=== PATIENT | female | born 1990 | race Caucasian/White ===

== ENCOUNTER 2017-12-19 12:59 | Inpatient (IN) | payer OTHER ==
[2017-12-19] MEDS ORDERED: Sodium Chloride 0.9% 10 ML Syringe FLUSH PRN (14:26)
[2017-12-19] MEDS ORDERED: Lactated Ringers 1,000 ML IV SCH (14:30)
[2017-12-19] MEDS ORDERED: Oxytocin/Lactated Ringers 10 UNIT/1,000 ML BAG IV SCH (17:30)
[2017-12-19] MEDS ORDERED: Calcium Carbonate 500 MG Tab.Chew PO PRN (22:31)
[2017-12-20] MEDS ORDERED: Nalbuphine 20 MG/1 ML Amp IVPUSH ONE (02:07)
--- NOTE | 2017-12-20 07:26 | PCM.LDHP ---
L&D History of Present Illness - General Date of Service: 12/20/17 Admit Problem/Dx: Patient Status Order with Admit Dx/Problem 12/19/17 14:32 Patient Status [ADT] Urgent Admission Diagnosis/Problem Admission Diagnosis/Problem Source of Information: Patient History Limitations: Reports: No Limitations - History of Present Illness Introduction:: 27-year-old 000 PERCY 12/31/17 resented to labor and delivery on 12/19/17 with history of ruptured membranes estimated gestational age 38 weeks and 2 days at that time. Patient was started on Pitocin after adequate level of time given to start spontaneous labor. Spontaneous rupture membranes with confirmed and the Essure patient thinks membranes ruptured probably 0900 hrs. on 12/19/17. GBS negative. AB+, antibody screen negative, hemoglobin hematocrit on 06/16/1809.9 and 32.8 with platelets 253,000. Pap test negative on 06/16/17 rubella immune, VDRL nonreactive urine culture negative hepatitis B surface antigen negative HIV negative Chlamydia and gonorrhea negative 10/12/17 hemoglobin hematocrit 10.1/30.7. Platelets 235,000 diabetes screen 114 11/23/17 hemoglobin 10.9/hematocrit 33.1 platelets 208,000 Group B strep negative on 12/07/17. Pain Score: 8 Improves with: Reports: None Worsens with: Reports: None Associated Symptoms: Reports: N - Related Data Allergies/Adverse Reactions: Allergies Allergy/AdvReac Type Severity Reaction Status Date / Time amoxicillin [From Augmentin] Allergy Hives Verified 12/19/17 16:52 clavulanic acid Allergy Hives Verified 12/19/17 16:52 [From Augmentin] Dairy Products Allergy Stomach Verified 12/19/17 16:52 Upset latex Allergy Anaphylactic Verified 12/19/17 16:52 Shock Home Medications: Home Meds Acyclovir 400 mg PO BID 12/19/17 [History] Ferrous Sulfate [Iron] 325 mg PO DAILY 12/19/17 [History] Vit #108/Iron/FA [ One Tablet] 1 each PO DAILY 12/19/17 [ History] Past Medical History STRIPPER BLACK AND WHITE History: Reports: Endometriosis, Other (See Below) Other OB/BYN History: Had laproscopic dx of endometriosis Psychiatric History: Reports: Depression, PTSD Other Psychiatric History: EPDS in clinic 14/30-declined medication Hematologic History: Reports: Anemia - Infectious Disease History Infectious Disease History: Reports: Herpes Other Infectious Disease History: Started Acyclovir 400mg BID prophylaxis Social & Family History - Family History Family Medical History: Noncontributory - Tobacco Use Smoking Status *Q: Never Smoker Second Hand Smoke Exposure: No - Caffeine Use Caffeine Use: Reports: None - Recreational Drug Use Recreational Drug Use: No H&P Review of Systems - Review of Systems: Review Of Systems: See Below General: Reports: No Symptoms HEENT: Reports: No Symptoms Pulmonary: Reports: No Symptoms Cardiovascular: Reports: No Symptoms Gastrointestinal: Reports: No Symptoms Genitourinary: Reports: No Symptoms Musculoskeletal: Reports: No Symptoms Skin: Reports: No Symptoms Psychiatric: Reports: No Symptoms Neurological: Reports: No Symptoms Hematologic/Lymphatic: Reports: No Symptoms Immunologic: Reports: No Symptoms L&D Exam - Exam Exam: See Below - Vital Signs Vital Signs: Last Vital Signs Temp 98.2 F 12/19/17 13:21 Pulse 87 12/19/17 13:21 Resp 18 12/19/17 13:21 BP 104/91 H 12/19/17 13:21 Pulse Ox Weight: 146 lb - OB Specific Movement: Active Heart Tones: Present Heart Tones per Min: 135 Heart Rate (FHR) Variability: Moderate (6-25 bmp) Presentation: Vertex - Nguyen Score Nguyen Score Cervix Position: Posterior Nguyen Score Consistency: Soft Nguyen Score Effacement: >80% Nguyen Score Dilation: 1-2 cm Nguyen Score 's Station: +1, +2 Nguyen Score Total: 9 - Exam General: Alert, Oriented HEENT: Conjunctiva Clear, EACs Clear, Mucosa Moist & [place], PERRLA Neck: Supple, Trachea Midline Lungs: Clear to Auscultation, Normal Respiratory Effort Cardiovascular: Regular Rate, Regular Rhythm GI/Abdominal Exam: Normal Bowel Sounds, Soft, Non-Tender Extremities: Normal Inspection, Normal Range of Motion, Non-Tender, No Pedal Edema, Normal Capillary Refill Skin: Warm, Dry, Intact Neurological: Reflexes Equal Bilateral Psychiatric: Alert, Normal Affect, Normal Mood - Patient Data Lab Results Last 24 hrs: Laboratory Results - last 24 hr 12/19/17 12/19/17 12/19/17 Range/Units 13:45 14:45 14:45 WBC 11.84 H (3.98-10.04) K/mm3 RBC 3.99 (3.98-5.22) M/mm3 Hgb 12.3 (11.2-15.7) gm/L Hct 36.6 (34.1-44.9) % MCV 91.7 (79.4-94.8) fl MCH 30.8 (25.6-32.2) pg MCHC 33.6 (32.2-35.5) g/dl RDW Std Deviation 45.9 (36.4-46.3) fL Plt Count 209 (182-369) K/mm3 MPV 11.3 (9.4-12.3) fl Neut % (Auto) 76.1 H (34.0-71.1) % Lymph % (Auto) 18.1 L (19.3-51.7) % [place] % (Auto) 4.9 (4.7-12.5) % Eos % (Auto) 0.4 L (0.7-5.8) Baso % (Auto) 0.2 (0.1-1.2) % Neut # (Auto) 9.01 H (1.56-6.13) K/mm3 Lymph # (Auto) 2.14 (1.18-3.74) K/mm3 [place] # (Auto) 0.58 H (0.24-0.36) K/mm3 Eos # (Auto) 0.05 (0.04-0.36) K/mm3 Baso # (Auto) 0.02 (0.01-0.08) K/mm3 Membrane Rupture Positive H Blood Type AB POSITIVE Gel Antibody Screen Negative Result Diagrams: 12/19/17 14:45 - Problem List (1) 38 weeks gestation of SNOMED Code(s): 37759288 ICD Code: Z3A.38 - 38 WEEKS GESTATION OF Status: Acute Current Visit: Yes Problem List Initiated/Reviewed/Updated: No Orders Last 24hrs: Active Orders 24 hr Category Date Time Status Patient Status [ADT] Urgent ADT 12/19/17 14:32 Active Activity as Tolerated [RC] PFP Care 12/19/17 14:26 Active Communication Order [RC] ASDIRECTED Care 12/19/17 14:26 Active Notify Provider [RC] PFP Care 12/19/17 14:26 Active Notify Provider [RC] PRN Care 12/19/17 14:26 Active Peripheral IV Care [RC] . DIRECTED Care 12/19/17 14:26 Active Up ad Nikki [RC] ASDIRECTED Care 12/19/17 13:39 Active Vital Signs [RC] PER UNIT ROUTINE Care 12/19/17 13:38 Active Regular Diet [DIET] Diet 12/19/17 Lunch Active AMNISURE RUPTURE MEMBRAN [BF] Urgent Lab 12/19/17 13:45 Ordered Calcium Carbonate [Tums] Med 12/19/17 22:31 Active 1,000 mg PO Q2HR PRN Lactated Ringers [Ringers, Lactated] 1,000 ml Med 12/19/17 14:30 Active IV ASDIRECTED Oxytocin [Pitocin] 20 unit Med 12/19/17 14:45 Active Lactated Ringers [Ringers, Lactated] 1,000 ml IV ASDIRECTED Oxytocin [Pitocin] 20 unit Med 12/20/17 02:15 Active Lactated Ringers [Ringers, Lactated] 1,000 ml IV TITRATE Sodium Chloride 0.9% [Saline Flush] Med 12/19/17 14:26 Active 10 ml FLUSH ASDIRECTED PRN Electronic Heart Tones Internal [WOMSER] Per Unit Oth 12/19/17 14:26 Ordered Routine Peripheral IV Insertion Adult [OM.PC] Routine Oth 12/19/17 14:26 Ordered Resuscitation Status Routine Resus Stat 12/19/17 13:38 Ordered Medication Orders Calcium Carbonate/Glycine (Tums) 1,000 mg PO Q2HR PRN PRN Reason: Indigestion Last Admin: 12/19/17 22:57 Dose: 1,000 mg Lactated Ringer's (Ringers, Lactated) 1,000 mls @ 100 mls/hr IV ASDIRECTED DIONNE Last Admin: 12/19/17 23:00 Dose: 100 mls/hr Oxytocin 20 unit/ Lactated (Ringer's) 1,002 mls @ 500 mls/hr IV ASDIRECTED DIONNE Oxytocin 20 unit/ Lactated (Ringer's) 1,002 mls @ 66.13 mls/hr IV TITRATE DIONNE; Protocol Last Titration: 12/20/17 05:00 Dose: 28 munits/min, 84.16 mls/hr Titration: 12/20/17 04:30 Dose: 26 munits/min, 78.15 mls/hr Titration: 12/20/17 04:00 Dose: 24 munits/min, 72.14 mls/hr Admin: 12/20/17 02:42 Dose: 22 munits/min, 66.13 mls/hr Admin: 12/20/17 02:34 Dose: 22 munits/min, 66.13 mls/hr Sodium Chloride (Saline Flush) 10 ml FLUSH ASDIRECTED PRN PRN Reason: Keep Vein Open Assessment/Plan Comment:: Plan delivery
--- NOTE | 2017-12-20 07:35 | PCM.DEL ---
L & D Note - General Info Date of Service: 12/20/17 Mother's Due Date: 12/31/17 - Delivery Note Labor: Augmented by Oxytocin Delivery Outcome: Livebirth (Female liveborn at 0657 hrs. Thursday12/20/17 born in bed delivered by RN I was called at 0 [phone] and arrived at 0702. Weight pending. Apgars 8/9.) Delivery Method: Spontaneous Vaginal Delivery-Single Delivery Mode: Spontaneous Presentation: Vertex Nuchal Cord: None Anesthesia Type: None Episiotomy Type: None Laceration: 1st Degree (Right periurethral not bleeding not sutured) Placenta: Intact, Spontaneous (At 0710 hrs. on Sundays12/20/17 intact discarded) Cord: 3 Vessels Estimated Blood Loss: 250 [place]: Suctioned, Bulb Syringe, Stimulated, Warmed, [place] Used, Warmer Used Provider: Rajat Fernando (BIB-RN ) Score 1 min: 8 Score 5 min: 9 - General Info Date of Service: 12/20/17 Functional Status: Reports: Pain Controlled - Review of Systems General: Reports: No Symptoms HEENT: Reports: No Symptoms Pulmonary: Reports: No Symptoms Cardiovascular: Reports: No Symptoms Gastrointestinal: Reports: No Symptoms Genitourinary: Reports: No Symptoms Musculoskeletal: Reports: No Symptoms Skin: Reports: No Symptoms Neurological: Reports: No Symptoms Psychiatric: Reports: No Symptoms - Patient Data Vitals - Most Recent: Last Vital Signs Temp 98.2 F 12/19/17 13:21 Pulse 87 12/19/17 13:21 Resp 18 12/19/17 13:21 BP 104/91 H 12/19/17 13:21 Pulse Ox Weight - Most Recent: 146 lb I&O - Last 24 Hours: Intake & Output 12/19/17 12/20/17 12/20/17 22:59 06:59 14:59 Intake Total 240 Balance 240 Lab Results Last 24 Hours: Laboratory Results - last 24 hr 12/19/17 12/19/17 12/19/17 Range/Units 13:45 14:45 14:45 WBC 11.84 H (3.98-10.04) K/mm3 RBC 3.99 (3.98-5.22) M/mm3 Hgb 12.3 (11.2-15.7) gm/L Hct 36.6 (34.1-44.9) % MCV 91.7 (79.4-94.8) fl MCH 30.8 (25.6-32.2) pg MCHC 33.6 (32.2-35.5) g/dl RDW Std Deviation 45.9 (36.4-46.3) fL Plt Count 209 (182-369) K/mm3 MPV 11.3 (9.4-12.3) fl Neut % (Auto) 76.1 H (34.0-71.1) % Lymph % (Auto) 18.1 L (19.3-51.7) % [place] % (Auto) 4.9 (4.7-12.5) % Eos % (Auto) 0.4 L (0.7-5.8) Baso % (Auto) 0.2 (0.1-1.2) % Neut # (Auto) 9.01 H (1.56-6.13) K/mm3 Lymph # (Auto) 2.14 (1.18-3.74) K/mm3 [place] # (Auto) 0.58 H (0.24-0.36) K/mm3 Eos # (Auto) 0.05 (0.04-0.36) K/mm3 Baso # (Auto) 0.02 (0.01-0.08) K/mm3 Membrane Rupture Positive H Blood Type AB POSITIVE Gel Antibody Screen Negative Med Orders - Current: Current Medications Calcium Carbonate/Glycine (Tums) 1,000 mg PO Q2HR PRN PRN Reason: Indigestion Last Admin: 12/19/17 22:57 Dose: 1,000 mg Lactated Ringer's (Ringers, Lactated) 1,000 mls @ 100 mls/hr IV ASDIRECTED DIONNE Last Admin: 12/19/17 23:00 Dose: 100 mls/hr Oxytocin 20 unit/ Lactated (Ringer's) 1,002 mls @ 500 mls/hr IV ASDIRECTED DIONNE Oxytocin 20 unit/ Lactated (Ringer's) 1,002 mls @ 66.13 mls/hr IV TITRATE DIONNE; Protocol Last Titration: 12/20/17 05:00 Dose: 28 munits/min, 84.16 mls/hr Sodium Chloride (Saline Flush) 10 ml FLUSH ASDIRECTED PRN PRN Reason: Keep Vein Open Discontinued Medications Oxytocin/Lactated Ringer's (Pitocin In Lr 10 Units/1,000 Ml) 10 unit in 1,000 mls @ 12 mls/hr IV TITRATE DIONNE; Protocol Last Titration: 12/20/17 01:00 Dose: 20 munits/min, 120 mls/hr Nalbuphine HCl (Nubain) 10 mg IVPUSH ONETIME ONE Stop: 12/20/17 02:08 Last Admin: 12/20/17 06:20 Dose: 10 mg - Problem List & Annotations (1) 38 weeks gestation of SNOMED Code(s): 96607186 Code(s): Z3A.38 - 38 WEEKS GESTATION OF Status: Acute Current Visit: Yes (2) First degree laceration of perineum during delivery, SNOMED Code(s): 210351157 Code(s): O70.0 - FIRST DEGREE PERINEAL LACERATION DURING DELIVERY Status: Acute Current Visit: Yes (3) Normal delivery SNOMED Code(s): 30756383, 627347781 Code(s): O80 - ENCOUNTER FOR FULL-TERM UNCOMPLICATED DELIVERY Status: Acute Current Visit: Yes - Problem List Review Problem List Initiated/Reviewed/Updated: No - My Orders Last 24 Hours: My Active Orders 12/19/17 13:38 Vital Signs [RC] PER UNIT ROUTINE Resuscitation Status Routine 12/19/17 13:39 Up ad Nikki [RC] ASDIRECTED 12/19/17 13:45 AMNISURE RUPTURE MEMBRAN [BF] Urgent 12/19/17 14:26 Activity as Tolerated [RC] PFP Communication Order [RC] ASDIRECTED Notify Provider [RC] PFP Notify Provider [RC] PRN Peripheral IV Care [RC] . DIRECTED Sodium Chloride 0.9% [Saline Flush] 10 ml FLUSH ASDIRECTED PRN Electronic Heart Tones Internal [WOMSER] Per Unit Routine Peripheral IV Insertion Adult [OM.PC] Routine 12/19/17 14:30 Lactated Ringers [Ringers, Lactated] 1,000 ml IV ASDIRECTED 12/19/17 14:32 Patient Status [ADT] Urgent 12/19/17 14:45 Oxytocin [Pitocin] 20 unit Lactated Ringers [Ringers, Lactated] 1,000 ml IV ASDIRECTED 12/19/17 22:31 Calcium Carbonate [Tums] 1,000 mg PO Q2HR PRN 12/19/17 Lunch Regular Diet [DIET] 12/20/17 02:15 Oxytocin [Pitocin] 20 unit Lactated Ringers [Ringers, Lactated] 1,000 ml IV TITRATE - Plan Plan:: Plan delivery
[2017-12-20] MEDS ORDERED: Docusate Sodium 100 MG Cap PO PRN (07:55)
[2017-12-20] MEDS ORDERED: Witch Hazel Medicated Pads 100/Jar TOP PRN (07:55)
[2017-12-20] MEDS ORDERED: Ibuprofen 600 MG Tab PO PRN (07:55)
[2017-12-20] MEDS ORDERED: Benzocaine/Menthol 20%-0.5% Spray 56 GM Canister TOP PRN (07:55)
[2017-12-20] MEDS ORDERED: Lanolin 100% Cream 7 GM Tube TOP PRN (07:55)
[2017-12-20] MEDS ORDERED: Acetaminophen 325 MG Tab PO PRN (07:55)
[2017-12-20] MEDS: Acyclovir 200 MG Cap PO SCH ×2 (10:49→20:29)
[2017-12-20] MEDS: Prenatal Multivitamin with Calcium/Folic Acid/Iron Tab PO SCH (10:49)
[2017-12-20] MEDS: Ferrous Sulfate 325 MG Tab PO SCH (10:49)
--- NOTE | 2017-12-20 15:05 | PCM.SN ---
- Free Text/Narrative Note: C/O right hand "tingling" and "numb" feeling since delivery. 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
--- NOTE | 2017-12-21 08:38 | PCM.DCSUM1 ---
Discharge Summary - Hospital Course Free Text/Narrative:: [facility] LIVE L/D Delivery Note Patient Name: JOSÉ ANTONIO PARDO Date of : 89 Patient Status: Inpatient Attending Provider: Rajat Fernando Date: 12/20/17 07:29 Initialization Date: 12/20/17 07:29 L & D Note - General Info Date of Service: 12/20/17 Mother's Due Date: 12/31/17 - Delivery Note Labor: Augmented by Oxytocin Delivery Outcome: Livebirth (Female liveborn at 0657 hrs. Thursday12/20/17 born in bed delivered by RN I was called at 0 [phone] and arrived at 0702. Weight pending. Apgars 8/9.) Infant Delivery Method: Spontaneous Vaginal Delivery-Single Infant Delivery Mode: Spontaneous Presentation: Vertex Nuchal Cord: None Anesthesia Type: None Episiotomy Type: None Laceration: 1st Degree (Right periurethral not bleeding not sutured) Placenta: Intact, Spontaneous (At 0710 hrs. on Sundays12/20/17 intact discarded) Cord: 3 Vessels Estimated Blood Loss: 250 Bland: Suctioned, Bulb Syringe, Stimulated, Warmed, [place] Used, Warmer Used Provider: Rajat Fernando ([facility]-RN ) Score 1 min: 8 Score 5 min: 9 - General Info Date of Service: 12/20/17 Functional Status: Reports: Pain Controlled - Review of Systems General: Reports: No Symptoms HEENT: Reports: No Symptoms Pulmonary: Reports: No Symptoms Cardiovascular: Reports: No Symptoms Gastrointestinal: Reports: No Symptoms Genitourinary: Reports: No Symptoms Musculoskeletal: Reports: No Symptoms Skin: Reports: No Symptoms Neurological: Reports: No Symptoms Psychiatric: Reports: No Symptoms - Patient Data Vitals - Most Recent: Last Vital Signs Temp 98.2 F 12/19/17 13:21 Pulse 87 12/19/17 13:21 Resp 18 12/19/17 13:21 BP 104/91 H 12/19/17 13:21 Pulse Ox Weight - Most Recent: 146 lb I&O - Last 24 Hours: Intake & Output 12/19/17 12/20/17 12/20/17 22:59 06:59 14:59 Intake Total 240 Balance 240 Lab Results Last 24 Hours: Laboratory Results - last 24 hr 12/19/17 12/19/17 12/19/17 Range/Units 13:45 14:45 14:45 WBC 11.84 H (3.98-10.04) K/mm3 RBC 3.99 (3.98-5.22) M/mm3 Hgb 12.3 (11.2-15.7) gm/L Hct 36.6 (34.1-44.9) % MCV 91.7 (79.4-94.8) fl MCH 30.8 (25.6-32.2) pg MCHC 33.6 (32.2-35.5) g/dl RDW Std Deviation 45.9 (36.4-46.3) fL Plt Count 209 (182-369) K/mm3 MPV 11.3 (9.4-12.3) fl Neut % (Auto) 76.1 H (34.0-71.1) % Lymph % (Auto) 18.1 L (19.3-51.7) % [place] % (Auto) 4.9 (4.7-12.5) % Eos % (Auto) 0.4 L (0.7-5.8) Baso % (Auto) 0.2 (0.1-1.2) % Neut # (Auto) 9.01 H (1.56-6.13) K/mm3 Lymph # (Auto) 2.14 (1.18-3.74) K/mm3 [place] # (Auto) 0.58 H (0.24-0.36) K/mm3 Eos # (Auto) 0.05 (0.04-0.36) K/mm3 Baso # (Auto) 0.02 (0.01-0.08) K/mm3 Membrane Rupture Positive H Blood Type AB POSITIVE Gel Antibody Screen Negative Med Orders - Current: Current Medications Calcium Carbonate/Glycine (Tums) 1,000 mg PO Q2HR PRN PRN Reason: Indigestion Last Admin: 12/19/17 22:57 Dose: 1,000 mg Lactated Ringer's (Ringers, Lactated) 1,000 mls @ 100 mls/hr IV ASDIRECTED DIONNE Last Admin: 12/19/17 23:00 Dose: 100 mls/hr Oxytocin 20 unit/ Lactated (Ringer's) 1,002 mls @ 500 mls/hr IV ASDIRECTED DIONNE Oxytocin 20 unit/ Lactated (Ringer's) 1,002 mls @ 66.13 mls/hr IV TITRATE DIONNE; Protocol Last Titration: 12/20/17 05:00 Dose: 28 munits/min, 84.16 mls/hr Sodium Chloride (Saline Flush) 10 ml FLUSH ASDIRECTED PRN PRN Reason: Keep Vein Open Discontinued Medications Oxytocin/Lactated Ringer's (Pitocin In Lr 10 Units/1,000 Ml) 10 unit in 1,000 mls @ 12 mls/hr IV TITRATE DIONNE; Protocol Last Titration: 12/20/17 01:00 Dose: 20 munits/min, 120 mls/hr Nalbuphine HCl (Nubain) 10 mg IVPUSH ONETIME ONE Stop: 12/20/17 02:08 Last Admin: 12/20/17 06:20 Dose: 10 mg - Problem List & Annotations (1) 38 weeks gestation of SNOMED Code(s): 68112804 Code(s): Z3A.38 - 38 WEEKS GESTATION OF Status: Acute Current Visit: Yes (2) First degree laceration of perineum during delivery, SNOMED Code(s): 999113601 Code(s): O70.0 - FIRST DEGREE PERINEAL LACERATION DURING DELIVERY Status: Acute Current Visit: Yes (3) Normal delivery SNOMED Code(s): 31324943, 537200059 Code(s): O80 - ENCOUNTER FOR FULL-TERM UNCOMPLICATED DELIVERY Status: Acute Current Visit: Yes - Problem List Review Problem List Initiated/Reviewed/Updated: No - My Orders Last 24 Hours: My Active Orders 12/19/17 13:38 Vital Signs [RC] PER UNIT ROUTINE Resuscitation Status Routine 12/19/17 13:39 Up ad Nikki [RC] ASDIRECTED 12/19/17 13:45 AMNISURE RUPTURE MEMBRAN [BF] Urgent 12/19/17 14:26 Activity as Tolerated [RC] PFP Communication Order [RC] ASDIRECTED Notify Provider [RC] PFP Notify Provider [RC] PRN Peripheral IV Care [RC] . DIRECTED Sodium Chloride 0.9% [Saline Flush] 10 ml FLUSH ASDIRECTED PRN Electronic Heart Tones Internal [WOMSER] Per Unit Routine Peripheral IV Insertion Adult [OM.PC] Routine 12/19/17 14:30 Lactated Ringers [Ringers, Lactated] 1,000 ml IV ASDIRECTED 12/19/17 14:32 Patient Status [ADT] Urgent 12/19/17 14:45 Oxytocin [Pitocin] 20 unit Lactated Ringers [Ringers, Lactated] 1,000 ml IV ASDIRECTED 12/19/17 22:31 Calcium Carbonate [Tums] 1,000 mg PO Q2HR PRN 12/19/17 Lunch Regular Diet [DIET] 12/20/17 02:15 Oxytocin [Pitocin] 20 unit Lactated Ringers [Ringers, Lactated] 1,000 ml IV TITRATE - Plan Plan:: Plan delivery HPI Initial Comments: [facility] LIVE L/D Delivery Note Patient Name: JOSÉ ANTONIO PARDO Date of : 89 Patient Status: Inpatient Attending Provider: Rajat Fernando Date: 12/20/17 07:29 Initialization Date: 12/20/17 07:29 L & D Note - General Info Date of Service: 12/20/17 Mother's Due Date: 12/31/17 - Delivery Note Labor: Augmented by Oxytocin Delivery Outcome: Livebirth (Female liveborn at 0657 hrs. Thursday12/20/17 born in bed delivered by RN I was called at 0 656 and arrived at 0702. Weight pending. Apgars 8/9.) Delivery Method: Spontaneous Vaginal Delivery-Single Infant Delivery Mode: Spontaneous Presentation: Vertex Nuchal Cord: None Anesthesia Type: None Episiotomy Type: None Laceration: 1st Degree (Right periurethral not bleeding not sutured) Placenta: Intact, Spontaneous (At 0710 hrs. on Sundays12/20/17 intact discarded) Cord: 3 Vessels Estimated Blood Loss: 250 Bland: Suctioned, Bulb Syringe, Stimulated, Warmed, [place] Used, Warmer Used Provider: Rajat Fernando (BIB-RN ) Score 1 min: 8 Score 5 min: 9 - General Info Date of Service: 12/20/17 Functional Status: Reports: Pain Controlled - Review of Systems General: Reports: No Symptoms HEENT: Reports: No Symptoms Pulmonary: Reports: No Symptoms Cardiovascular: Reports: No Symptoms Gastrointestinal: Reports: No Symptoms Genitourinary: Reports: No Symptoms Musculoskeletal: Reports: No Symptoms Skin: Reports: No Symptoms Neurological: Reports: No Symptoms Psychiatric: Reports: No Symptoms - Patient Data Vitals - Most Recent: Last Vital Signs Temp 98.2 F 12/19/17 13:21 Pulse 87 12/19/17 13:21 Resp 18 12/19/17 13:21 BP 104/91 H 12/19/17 13:21 Pulse Ox Weight - Most Recent: 146 lb I&O - Last 24 Hours: Intake & Output 12/19/17 12/20/17 12/20/17 22:59 06:59 14:59 Intake Total 240 Balance 240 Lab Results Last 24 Hours: Laboratory Results - last 24 hr 12/19/17 12/19/17 12/19/17 Range/Units 13:45 14:45 14:45 WBC 11.84 H (3.98-10.04) K/mm3 RBC 3.99 (3.98-5.22) M/mm3 Hgb 12.3 (11.2-15.7) gm/L Hct 36.6 (34.1-44.9) % MCV 91.7 (79.4-94.8) fl MCH 30.8 (25.6-32.2) pg MCHC 33.6 (32.2-35.5) g/dl RDW Std Deviation 45.9 (36.4-46.3) fL Plt Count 209 (182-369) K/mm3 MPV 11.3 (9.4-12.3) fl Neut % (Auto) 76.1 H (34.0-71.1) % Lymph % (Auto) 18.1 L (19.3-51.7) % [place] % (Auto) 4.9 (4.7-12.5) % Eos % (Auto) 0.4 L (0.7-5.8) Baso % (Auto) 0.2 (0.1-1.2) % Neut # (Auto) 9.01 H (1.56-6.13) K/mm3 Lymph # (Auto) 2.14 (1.18-3.74) K/mm3 [place] # (Auto) 0.58 H (0.24-0.36) K/mm3 Eos # (Auto) 0.05 (0.04-0.36) K/mm3 Baso # (Auto) 0.02 (0.01-0.08) K/mm3 Membrane Rupture Positive H Blood Type AB POSITIVE Gel Antibody Screen Negative Med Orders - Current: Current Medications Calcium Carbonate/Glycine (Tums) 1,000 mg PO Q2HR PRN PRN Reason: Indigestion Last Admin: 12/19/17 22:57 Dose: 1,000 mg Lactated Ringer's (Ringers, Lactated) 1,000 mls @ 100 mls/hr IV ASDIRECTED DIONNE Last Admin: 12/19/17 23:00 Dose: 100 mls/hr Oxytocin 20 unit/ Lactated (Ringer's) 1,002 mls @ 500 mls/hr IV ASDIRECTED DIONNE Oxytocin 20 unit/ Lactated (Ringer's) 1,002 mls @ 66.13 mls/hr IV TITRATE DIONNE; Protocol Last Titration: 12/20/17 05:00 Dose: 28 munits/min, 84.16 mls/hr Sodium Chloride (Saline Flush) 10 ml FLUSH ASDIRECTED PRN PRN Reason: Keep Vein Open Discontinued Medications Oxytocin/Lactated Ringer's (Pitocin In Lr 10 Units/1,000 Ml) 10 unit in 1,000 mls @ 12 mls/hr IV TITRATE DIONNE; Protocol Last Titration: 12/20/17 01:00 Dose: 20 munits/min, 120 mls/hr Nalbuphine HCl (Nubain) 10 mg IVPUSH ONETIME ONE Stop: 12/20/17 02:08 Last Admin: 12/20/17 06:20 Dose: 10 mg - Problem List & Annotations (1) 38 weeks gestation of SNOMED Code(s): 75931619 Code(s): Z3A.38 - 38 WEEKS GESTATION OF Status: Acute Current Visit: Yes (2) First degree laceration of perineum during delivery, SNOMED Code(s): 322804762 Code(s): O70.0 - FIRST DEGREE PERINEAL LACERATION DURING DELIVERY Status: Acute Current Visit: Yes (3) Normal delivery SNOMED Code(s): 23595360, 831214369 Code(s): O80 - ENCOUNTER FOR FULL-TERM UNCOMPLICATED DELIVERY Status: Acute Current Visit: Yes - Problem List Review Problem List Initiated/Reviewed/Updated: No - My Orders Last 24 Hours: My Active Orders 12/19/17 13:38 Vital Signs [RC] PER UNIT ROUTINE Resuscitation Status Routine 12/19/17 13:39 Up ad Nikki [RC] ASDIRECTED 12/19/17 13:45 AMNISURE RUPTURE MEMBRAN [BF] Urgent 12/19/17 14:26 Activity as Tolerated [RC] PFP Communication Order [RC] ASDIRECTED Notify Provider [RC] PFP Notify Provider [RC] PRN Peripheral IV Care [RC] . DIRECTED Sodium Chloride 0.9% [Saline Flush] 10 ml FLUSH ASDIRECTED PRN Electronic Heart Tones Internal [WOMSER] Per Unit Routine Peripheral IV Insertion Adult [OM.PC] Routine 12/19/17 14:30 Lactated Ringers [Ringers, Lactated] 1,000 ml IV ASDIRECTED 12/19/17 14:32 Patient Status [ADT] Urgent 12/19/17 14:45 Oxytocin [Pitocin] 20 unit Lactated Ringers [Ringers, Lactated] 1,000 ml IV ASDIRECTED 12/19/17 22:31 Calcium Carbonate [Tums] 1,000 mg PO Q2HR PRN 12/19/17 Lunch Regular Diet [DIET] 12/20/17 02:15 Oxytocin [Pitocin] 20 unit Lactated Ringers [Ringers, Lactated] 1,000 ml IV TITRATE - Plan Plan:: Plan delivery Brief History: [facility] LIVE . L/D Delivery Note. [facility] [id number]. Date of : Patient Status: Inpatient. Attending Provider: Rajat Fernando Number: [id number]. Date: 12/20/17 07:29Initialization Date: 12/20/17 07:29. L & D Note. - General Info. Date of Service: 12/20/17. Mother's Due Date: 12/31/17. - Delivery Note. Labor: Augmented by Oxytocin. Delivery Outcome: Livebirth (Female liveborn at 0657 hrs. Thursday12/20/17 born in bed delivered by RN I was called at 0 656 and arrived at 0702. Weight pending. Apgars 8/9.). Infant Delivery Method: Spontaneous Vaginal Delivery-Single. Infant Delivery Mode: Spontaneous. Presentation: Vertex. Nuchal Cord: None. Anesthesia Type: None. Episiotomy Type: None. Laceration: 1st Degree (Right periurethral not bleeding not sutured). Placenta: Intact, Spontaneous (At 0710 hrs. on Sundays12/20/17 intact discarded). Cord: 3 Vessels. Estimated Blood Loss: 250. Bland: Suctioned, Bulb Syringe, Stimulated, Warmed, [place] Used, Warmer Used. Provider: Rajat Fernando (BIB-RN ). Score 1 min: 8. Score 5 min: 9. - General Info. Date of Service: 12/20/17. Functional Status: Reports: Pain Controlled. - Review of Systems. General: Reports: No Symptoms. HEENT: Reports: No Symptoms. Pulmonary: Reports: No Symptoms. Cardiovascular: Reports: No Symptoms. Gastrointestinal: Reports: No Symptoms. Genitourinary: Reports: No Symptoms. Musculoskeletal: Reports: No Symptoms. Skin: Reports: No Symptoms. Neurological: Reports: No Symptoms. Psychiatric: Reports: No Symptoms. - Patient Data. Vitals - Most Recent: Last Vital Signs. Temp 98.2 F 12/19/17 13:21. Pulse 87 12/19/17 13:21. Resp 18 12/19/17 13:21. BP 104/91 H 12/19/17 13:21. Pulse Ox. Weight - Most Recent: 146 lb. I&O - Last 24 Hours: Intake & Output. 12/19/1806. 22:5906:5914:59. Intake [id number]. [id number]. Lab Results Last 24 Hours : Laboratory Results - last 24 hr. 12/19/1806Range/Units. 13: 4514:4514:45. WBC 11.84 H (3.98-10.04) K/mm3. RBC 3.99 (3.98-5.22) M/mm3. Hgb 12.3 (11.2-15.7) gm/L. Hct 36.6 (34.1-44.9) %. MCV 91.7 (79.4-94.8) fl. MCH 30.8 (25.6-32.2) pg. MCHC 33.6 (32.2-35.5) g/dl. RDW Std Deviation 45.9 (36.4-46.3) fL. Plt Count 209 (182-369) K/mm3. MPV 11.3 (9.4-12.3) fl. Neut % (Auto) 76.1 H (34.0-71.1) %. Lymph % (Auto) 18.1 L (19.3-51.7) % . [place] % (Auto) 4.9 (4.7-12.5) %. Eos % (Auto) 0.4 L (0.7-5.8). Baso % (Auto ) 0.2 (0.1-1.2) %. Neut # (Auto) 9.01 H (1.56-6.13) K/mm3. Lymph # (Auto) 2.14 (1.18-3.74) K/mm3. [place] # (Auto) 0.58 H (0.24-0.36) K/mm3. Eos # (Auto ) 0.05 (0.04-0.36) K/mm3. Baso # (Auto) 0.02 (0.01-0.08) K/mm3. Membrane Rupture Positive H. Blood Type AB POSITIVE. Gel Antibody Screen Negative. Med Orders - Current: Current Medications. Calcium Carbonate/ Glycine (Tums) 1,000 mg PO Q2HR PRN. PRN Reason: Indigestion. Last Admin: 22:57 Dose: 1,000 mg. Lactated Ringer's (Ringers, Lactated) 1,000 mls @ 100 mls/hr IV ASDIRECTED DIONNE. Last Admin: 12/19/17 23:00 Dose: 100 mls/hr. Oxytocin 20 unit/ Lactated (Ringer's) 1,002 mls @ 500 mls/hr IV ASDIRECTED DIONNE. Oxytocin 20 unit/ Lactated (Ringer's) 1,002 mls @ 66.13 mls/hr IV TITRATE DIONNE; Protocol. Last Titration: 12/20/17 05:00 Dose: 28 munits/min, 84.16 mls/hr. Sodium Chloride (Saline Flush) 10 ml FLUSH ASDIRECTED PRN. PRN Reason: Keep Vein Open. Discontinued Medications. Oxytocin/Lactated Ringer's ( Pitocin In Lr 10 Units/1,000 Ml) 10 unit in 1,000 mls @ 12 mls/hr IV TITRATE DIONNE; Protocol. Last Titration: 12/20/17 01:00 Dose: 20 munits/min, 120 mls/ hr. Nalbuphine HCl (Nubain) 10 mg IVPUSH ONETIME ONE. Stop: 12/20/17 02:08. Last Admin: 12/20/17 06:20 Dose: 10 mg. - Problem List & Annotations. (1) 38 weeks gestation of . SNOMED Code(s): 52362229. Code(s): Z3A.38 - 38 WEEKS GESTATION OF Status: Acute Current Visit: Yes. (2) First degree laceration of perineum during delivery, . SNOMED Code(s): 223975968. Code(s): O70.0 - FIRST DEGREE PERINEAL LACERATION DURING DELIVERY Status: Acute Current Visit: Yes. (3) Normal delivery. SNOMED Code(s): 53890549, 402534546. Code(s): O80 - ENCOUNTER FOR FULL-TERM UNCOMPLICATED DELIVERY Status: Acute Current Visit: Yes. - Problem List Review. Problem List Initiated/Reviewed/Updated: No. - My Orders. Last 24 Hours: My Active Orders. 12/19/17 13:38. Vital Signs [RC] PER UNIT ROUTINE. Resuscitation Status Routine. 12/19/17 13:39. Up ad Nikki [RC] ASDIRECTED. 12/19/17 13:45. AMNISURE RUPTURE MEMBRAN [BF] Urgent. 12/19/17 14:26. Activity as Tolerated [RC] PFP. Communication Order [RC] ASDIRECTED. Notify Provider [RC] PFP. Notify Provider [RC] PRN. Peripheral IV Care [RC] . DIRECTED. Sodium Chloride 0.9% [Saline Flush] 10 ml FLUSH ASDIRECTED PRN. Electronic Heart Tones Internal [WOMSER] Per Unit Routine. Peripheral IV Insertion Adult [ OM.PC] Routine. 12/19/17 14:30. Lactated Ringers [Ringers, Lactated] 1,000 ml IV ASDIRECTED. 12/19/17 14:32. Patient Status [ADT] Urgent. 12/19/17 14:45. Oxytocin [Pitocin] 20 unit Lactated Ringers [Ringers, Lactated] 1,000 ml IV ASDIRECTED. 12/19/17 22:31. Calcium Carbonate [Tums] 1,000 mg PO Q2HR PRN. 12/19/17 Lunch. Regular Diet [DIET]. 12/20/17 02:15. Oxytocin [Pitocin] 20 unit Lactated Ringers [Ringers, Lactated] 1,000 ml IV TITRATE. - Plan. Plan: : Plan delivery Diagnosis: Stroke: No - Discharge Data Discharge Date: 12/21/17 Discharge Disposition: Home, Self-Care 01 Condition: Good - Discharge Diagnosis/Problem(s) (1) 38 weeks gestation of SNOMED Code(s): 24936181 ICD Code: Z3A.38 - 38 WEEKS GESTATION OF Status: Acute Current Visit: Yes (2) First degree laceration of perineum during delivery, SNOMED Code(s): 068782741 ICD Code: O70.0 - FIRST DEGREE PERINEAL LACERATION DURING DELIVERY Status: Acute Current Visit: Yes (3) Normal delivery SNOMED Code(s): 63215173, 988805309 ICD Code: O80 - ENCOUNTER FOR FULL-TERM UNCOMPLICATED DELIVERY Status: Acute Current Visit: Yes - Patient Summary/Data Complications: None Consults: None Hospital Course: Uneventful - Patient Instructions Diet: Regular Diet as Tolerated Driving: Do Not Drive (48 hours) Showering/Bathing: May Shower Notify Provider of: Fever, Increased Pain, Swelling and Redness, Drainage, Nausea and/or Vomiting - Discharge Plan *PRESCRIPTION DRUG MONITORING PROGRAM REVIEWED*: Not Applicable *COPY OF PRESCRIPTION DRUG MONITORING REPORT IN PATIENT ANJUM: Not Applicable Home Medications: Home Meds Acyclovir 400 mg PO BID 12/19/17 [History] Ferrous Sulfate [Iron] 325 mg PO DAILY 12/19/17 [History] Vit #108/Iron/FA [ One Tablet] 1 each PO DAILY 12/19/17 [ History] Acetaminophen [Tylenol] 650 mg PO Q4H PRN tablet 12/21/17 [Rx] Benzocaine/Menthol [Dermoplast Pain Relief [place]] 1 spray TOP ASDIRECTED PRN canister 12/21/17 [Rx] Docusate Sodium [Colace] 100 mg PO BID PRN cap 12/21/17 [Rx] Ibuprofen [Motrin] 600 mg PO Q4H PRN tablet 12/21/17 [Rx] Lanolin [Lansinoh HPA] 1 applic TOP ASDIRECTED PRN tube 12/21/17 [Rx] [place] [Tucks] 1 pad TOP ASDIRECTED PRN pad 12/21/17 [Rx] Patient Handouts: Home Care Instructions for Mom Referrals: Rajat Fernando MD [Primary Care Provider] - (Return to clinic to see me on 01/05/18.) - Discharge Summary/Plan Comment DC Time >30 min.: No - Patient Data Vitals - Most Recent: Last Vital Signs Temp 98.2 F 12/21/17 03:57 Pulse 69 12/21/17 03:57 Resp 14 12/21/17 03:57 BP 134/102 H 12/21/17 03:57 Pulse Ox 97 12/21/17 03:57 Weight - Most Recent: 146 lb I&O - Last 24 hours: Intake & Output 12/20/17 12/21/17 12/21/17 22:59 06:59 14:59 Intake Total 0 Balance 0 Lab Results - Last 24 hrs: Laboratory Results - last 24 hr 12/21/17 Range/Units 06:01 WBC 10.21 H (3.98-10.04) K/mm3 RBC 3.08 L (3.98-5.22) M/mm3 Hgb 9.3 L (11.2-15.7) gm/L Hct 29.5 L (34.1-44.9) % MCV 95.8 H (79.4-94.8) fl MCH 30.2 (25.6-32.2) pg MCHC 31.5 L (32.2-35.5) g/dl RDW Std Deviation 47.8 H (36.4-46.3) fL Plt Count 170 L (182-369) K/mm3 MPV 11.4 (9.4-12.3) fl Med Orders - Current: Current Medications Acetaminophen (Tylenol) 650 mg PO Q4H PRN PRN Reason: mild pain or fever Acyclovir (Zovirax) 400 mg PO BID DIONNE Last Admin: 12/20/17 20:29 Dose: 400 mg Benzocaine/Menthol (Dermoplast Pain Relief [place]) 0 gm TOP ASDIRECTED PRN PRN Reason: Perineal Comfort Measure Last Admin: 12/20/17 10:49 Dose: 1 canister Docusate Sodium (Colace) 100 mg PO BID PRN PRN Reason: Constipation Last Admin: 12/20/17 16:55 Dose: 100 mg Emollient Ointment (Lansinoh Hpa) 0 gm TOP ASDIRECTED PRN PRN Reason: Sore Nipples Last Admin: 12/20/17 20:41 Dose: 1 applic Ferrous Sulfate (Ferrous Sulfate) 325 mg PO DAILY [facility] Last Admin: 12/20/17 10:49 Dose: 325 mg Ibuprofen (Motrin) 600 mg PO Q4H PRN PRN Reason: Mild pain or fever Prenat Multivit/[place]/Iron/Folic Ac ( Plus Iron) 1 each PO DAILY DIONNE Last Admin: 12/20/17 10:49 Dose: 1 each [place] (Tucks) 1 pad TOP ASDIRECTED PRN PRN Reason: Hemorrhoid pain Last Admin: 12/20/17 10:49 Dose: 1 container Discontinued Medications Calcium Carbonate/Glycine (Tums) 1,000 mg PO Q2HR PRN PRN Reason: Indigestion Last Admin: 12/19/17 22:57 Dose: 1,000 mg Lactated Ringer's (Ringers, Lactated) 1,000 mls @ 100 mls/hr IV ASDIRECTED DIONNE Last Admin: 12/19/17 23:00 Dose: 100 mls/hr Oxytocin 20 unit/ Lactated (Ringer's) 1,002 mls @ 500 mls/hr IV ASDIRECTED DIONNE Oxytocin/Lactated Ringer's (Pitocin In Lr 10 Units/1,000 Ml) 10 unit in 1,000 mls @ 12 mls/hr IV TITRATE DIONNE; Protocol Last Titration: 12/20/17 01:00 Dose: 20 munits/min, 120 mls/hr Oxytocin 20 unit/ Lactated (Ringer's) 1,002 mls @ 66.13 mls/hr IV TITRATE DIONNE; Protocol Last Titration: 12/20/17 05:00 Dose: 28 munits/min, 84.16 mls/hr Nalbuphine HCl (Nubain) 10 mg IVPUSH ONETIME ONE Stop: 12/20/17 02:08 Last Admin: 12/20/17 06:20 Dose: 10 mg Sodium Chloride (Saline Flush) 10 ml FLUSH ASDIRECTED PRN PRN Reason: Keep Vein Open
[2017-12-21] MEDS: Acyclovir 200 MG Cap PO SCH (08:50)
[2017-12-21] MEDS: Prenatal Multivitamin with Calcium/Folic Acid/Iron Tab PO SCH (08:50)
[2017-12-21] MEDS: Ferrous Sulfate 325 MG Tab PO SCH (11:05)
== END 2017-12-21 10:33 | disposition home or self-care (01) | DRG 774 ==
LOC: JD.OB 12:59 → JD.OBCHECK 12:59 → JD.OB 14:32 → OBSVTOIN 12-20 06:57 → JD.OB 12-20 06:58
PROVIDERS: ADMIT Obstetrics & Gynecology; ATTEND Obstetrics & Gynecology
PROC: 10E0XZZ Delivery of Products of Conception, External Approach (ICD-10-PCS; principal; 2017-12-20)
DX: O98.32 Other infections with a predominantly sexual mode of transmission complicating childbirth (principal); O70.0 First degree perineal laceration during delivery; Z37.0 Single live birth; O99.344 Other mental disorders complicating childbirth; F32.9 Major depressive disorder, single episode, unspecified; Z3A.38 38 weeks gestation of pregnancy; F43.10 Post-traumatic stress disorder, unspecified; Z88.1 Allergy status to other antibiotic agents; Z91.040 Latex allergy status; Z91.011 Allergy to milk products; A60.00 Herpesviral infection of urogenital system, unspecified; Z79.899 Other long term (current) drug therapy
CPT/HCPCS: 36415; 59025; 59409; 84112; 85025; 85027; 86850; 86900; 86901; A9270-GY; J2300; J2590; J7120